=== PATIENT | male | born 1980 | race Caucasian/White ===

== ENCOUNTER 2020-06-04 11:17 | Emergency (ER) | payer MEDICAID ==
[~2020-06-04] VITALS: Ht 175.3 cm; Wt 68.2 kg
[~2020-06-04 11:17] MED LIST: BUPR100T4 PO; RISP0.5T39 PO
[2020-06-04 11:30] VITALS: BP 156/100
[2020-06-04] MEDS ORDERED: LORazepam 1 MG TABLET PO ONE (12:00)
[2020-06-04] MEDS ORDERED: HALOPERIDOL 5 MG TABLET PO ONE (12:00)
== END 2020-06-04 12:55 | disposition left against medical advice (07) ==
LOC: EMS 11:25
DX: F32.9 Major depressive disorder, single episode, unspecified (principal); F41.9 Anxiety disorder, unspecified
CPT/HCPCS: 99284; Z7502; Z7610